=== PATIENT | female | born 1990 | race Caucasian/White ===

== ENCOUNTER 2018-05-19 08:26 | Emergency (ER) | payer OTHER ==
[2018-05-19 08:45] VITALS: BMI 30.2
--- NOTE | 2018-05-19 09:18 | PDOC ---
Attending Attestation - HPI HPI: 05/19/18 10:41 The patient is a 27 year old female, with no significant past medical history, who presents to the emergency department with pelvic pain that started 3 days ago. Patient states her pain began 1 month ago and initially was intermittent. She presents today because her pain is now constant, non crampy in sensation, localized to the left lower quadrant. Patient reports visiting her [facility] office around 2 weeks ago and Ultrasound was done secondary to previous vaginal cyst. Ultrasound was normal. Patient continued to experience her pain after the visit so she proceeded to follow-up at her PCP office. Urine was drawn when revealed the presence of protein. Patient reports she has been taking antibiotics for a couple of days with no relief. Patient denies dysuria, frequency, urgency and hematuria. Patient denies fever, chills, nausea, vomit, diarrhea and constipation. Denies vaginal bleeding and vaginal discharge. Allergies: NKDA Past surgical history :None reported Social history: None reported PCP: Dr. Samra Gardner - Physicial Exam PE: 05/19/18 10:41 GENERAL: The patient is in no acute distress. HEAD: Normal with no signs of trauma. EYES: PERRLA, EOMI, sclera anicteric, conjunctiva clear. ENT: Ears normal, nares patent, oropharynx clear without exudates. Moist mucous membranes. NECK: Normal range of motion, supple without lymphadenopathy, JVD, or masses. LUNGS: Breath sounds equal, clear to auscultation bilaterally. No wheezes, and no crackles. HEART:Regular rate and rhythm, normal S1 and S2 without murmur, rub or gallop. ABDOMEN: +suprapubic tenderness, +LLQ. Soft, nontender, normoactive bowel sounds. No guarding, no rebound. No masses palpable. GENITOURINARY:+scant discharge,+tenderness. No vaginal discharge, no cervical motion, no adnexal fullness EXTREMITIES: Normal range of motion, no edema. No clubbing or cyanosis. No erythema, or tenderness. NEUROLOGICAL: Cranial nerves II through XII grossly intact. Normal speech. No focal neurological deficits. MUSCULOSKELETAL: Back non-tender to palpation, no CVA tenderness SKIN: Warm, Dry, normal turgor, no rashes or lesions noted. <Tasha Quezada - Last Filed: 05/19/18 12:15> - Resident Resident Name: Bekkerman,Von - ED Attending Attestation I have performed the following: I have examined & evaluated the patient, The case was reviewed & discussed with the resident, I agree w/resident's findings & plan, Exceptions are as noted - Medical Decision Making 05/20/18 08:14 Ms Riddle is a 27 yo F who presents to the ER with a complaint of llq pain Pain has been intermittent for the past month Worsening over the past 3 days Was seen by verification engineer 2 weeks ago, work up including US reportedly negatively She was seen by her PMD last week who dx UTI base on proteinuria, started her on cipro and flagyl Pt pain worsened no vaginal bleeding On examination, LLQ tenderness, no guarding or rebound Pelvic examination with no blood, no abn vaginal discharge, no CMT, no adnexal masses, nml external genitalia RRR CTA Labs wnml US with complex Left Hemorrhagic cyst CT same + moderate free fluid Pt given Tylenol IV with improved pain no peritoneal signs on examination prior to discharge Pt given copies of CT and US HGB stable as compared to prior Pt understands concerning signs and symptoms Will return for increased pain, uncontrollable pain, weakness, dizziness Pt was asked to follow up with verification engineer and show them her CT and US before the end of this week. Pt agrees with discharge plan Clinical Impression: Complex Hemorrhagic Cyst, initial presentation Likely Ruptured Cyst, initial presentation <Tania Rodriguez - Last Filed: 05/20/18 08:20> Discharge Disposition <Tasha Quezada - Last Filed: 05/19/18 12:15> - Discharge Dispostion Decision to Admit order: No <Tania Rodriguez - Last Filed: 05/20/18 08:20> - Diagnosis Ovarian cyst Qualifiers: Laterality: left Qualified Code(s): N83.202 - Unspecified ovarian cyst, left side - Discharge Dispostion Disposition: HOME Condition at time of disposition: Good - Prescriptions Prescriptions: Acetaminophen W/ Codeine #3 [Tylenol # 3 -] 1 tab PO BID #6 tablet MDD 2 - Referrals Referrals: Samra Gardner MD [Primary Care Provider] - - Patient Instructions Printed Discharge Instructions: DI for Ovarian Cyst Additional Instructions: Please return if you have any new, worsening or concerning symptoms. Please follow up with your primary care physician in the next week. - Post Discharge Activity Attestations - Attestations 05/19/18 10:55 Documentation prepared by Tasha Quezada, acting as medical van driver for Tania Rodriguez MD <Tasha Quezada - Last Filed: 05/19/18 12:15>
[2018-05-19] MEDS ORDERED: ACETAMINOPHEN 1000 MG/100 ML VIAL (NON FORMULARY) IVPB ONE (09:35)
--- NOTE | 2018-05-19 09:35 | PDOC ---
History of Present Illness - General Chief Complaint: Pain, Acute Stated Complaint: PELVIC PAIN Time Seen by Provider: 05/19/18 09:09 - History of Present Illness Initial Comments: 05/19/18 09:34 27 year old female with a hx of L hemorrhagic ovarian cyst and irregular menses presents for 3 day hx of LLQ abdominal pain. She reports that the pain started on Friday and progressively became worse, describing it as severe since last night. She took Ibuprofen, which did not alleviate her pain. Says that she has had on and off pain for 1 month, had a normal transvaginal US two weeks ago. She saw her PCP 2 days ago, who she states diagnosed her with a UTI based on "protein in her urine" and given cipro/flagyl. Denies chest pain, SOB, nausea, vomiting, diarrhea, fevers, chills. Allergies: none Surgeries: Gastric bypass (5 years ago) Smoking: none Alcohol: none Drugs: none Past History - Past Medical History Allergies/Adverse Reactions: Allergies Allergy/AdvReac Type Severity Reaction Status Date / Time No Known Allergies Allergy Verified 05/19/18 08:35 Home Medications: Ambulatory Orders NK [No Known Home Medication] 05/19/18 COPD: No DVT: No Dementia: No - Surgical History Abdominal Surgery: Yes (GASTRIC BYPASS 3 YRS AGO) - Immunization History Immunization Up to Date: Yes - Suicide/Smoking/Psychosocial Hx Smoking History: Never smoked Have you smoked in the past 12 months: No Information on smoking cessation initiated: No Hx Alcohol Use: No Drug/Substance Use Hx: No Substance Use Type: None Review of Systems - Review of Systems Able to Perform ROS?: Yes Is the patient limited Welsh proficient: Yes Constitutional: No: Chills, Fever, Weakness Respiratory: No: Cough, Shortness of Breath, Wheezing Cardiac (ROS): No: Chest Pain, Chest Tightness ABD/GI: Yes: Other (LLQ pain). No: Diarrhea, Nausea, Vomiting : No: Dysuria *Physical Exam - Vital Signs Last Vital Signs Temp Pulse Resp BP Pulse Ox 97.9 F 90 16 127/78 98 05/19/18 08:36 05/19/18 08:36 05/19/18 08:36 05/19/18 08:36 05/19/18 08:36 - Physical Exam Comments: 05/19/18 09:53 GENERAL: A&Ox3, no acute distress EYES: PERRLA, EOMI ENT: Moist mucus membranes NECK: No JVD LUNGS: CTA, no wheezes HEART: RRR, no murmurs ABDOMEN: Soft, nontender, BS present, surgical scars noted from prior bypass MUSCULOSKELETAL: No CVA Tenderness EXTREMITIES: 2+ pulses, no edema. NEUROLOGICAL: Cranial nerves II-XII intact. ED Treatment Course - LABORATORY CBC & Chemistry Diagram: 05/19/18 09:53 05/19/18 09:53 - RADIOLOGY Radiology Studies Ordered: Category Date Time Status TRANSVAGINAL ULTRASOUND US [US] Stat Ultrasound 05/19/18 09:02 Ordered Medical Decision Making - Medical Decision Making 05/19/18 09:54 27 year old female hx L hemorrhagic cyst presents with 3 days of severe lower abdominal pain -cbc, cmp, ua, upreg, transvaginal us -tylenol IV 1000mg for pain -signed out to Dr. Fischer 05/19/18 12:09 *DC/Admit/Observation/Transfer Diagnosis at time of Disposition: Ovarian cyst - Referrals Referrals: Samra Gardner MD [Primary Care Provider] - - Patient Instructions - Post Discharge Activity
[2018-05-19] MEDS ORDERED: ACETAMINOPHEN INJECTION 100 ML IVPB ONE (09:42)
[2018-05-19 10:01] LABS: BASO % 0.6 % (0-2.0); EOS % 0.4 % (0-4.5); HEMATOCRIT 42.3 % (32.4-45.2); HEMOGLOBIN 14.5 GM/dL (10.7-15.3); LYMPH % 27.8 % (8-40); MCH 28.8 pg (25.7-33.7); MCHC 34.3 g/dl (32.0-36.0); MEAN PLT VOLUME 10.4 fl (7.5-11.1); MONO % 7.8 % (3.8-10.2); NEUT % 63.4 % (42.8-82.8); PLATELET COUNT 197 K/MM3 (134-434); RBC 5.03 M/mm3 (3.60-5.2); RDW 13.2 % (11.6-15.6); WHITE BLOOD COUNT 9.5 K/mm3 (4.0-10.0)
[2018-05-19 10:12] LABS: HCG,QUALITATIVE URINE NEGATIVE
[2018-05-19 10:16] LABS: URINE APPEARANCE CLEAR; URINE BILIRUBIN NEGATIVE (<2.0 mg/dL); URINE COLOR YELLOW; URINE GLUCOSE (UA) NEGATIVE (NEGATIVE); URINE KETONE NEGATIVE (NEGATIVE); URINE LEUK ESTERASE TRACE (NEGATIVE); URINE NITRITE NEGATIVE (NEGATIVE); URINE PROTEIN NEGATIVE (NEGATIVE); URINE UROBILINOGEN NEGATIVE mg/dL (0.2-1.0)
[2018-05-19 10:21] LABS: EPI CELLS RARE /HPF (FEW); URINE HYALINE CAST 1 /lpf; URINE MUCUS RARE
[2018-05-19 10:28] LABS: ALBUMIN 3.8 g/dl (3.4-5.0); ALK PHOS 71 U/L (45-117); ANION GAP 4 (8-16); BILIRUBIN,TOTAL 0.5 mg/dL (0.2-1.0); BLOOD UREA NITROGEN 16 mg/dL (7-18); CALCIUM 8.7 mg/dL (8.5-10.1); CHLORIDE 108 mmol/L (98-107); CO2 28 mmol/L (21-32); CREATININE 0.7 mg/dL (0.55-1.02); GLUCOSE,RANDOM 66 mg/dL (74-106); POTASSIUM 4.5 mmol/L (3.5-5.1); SGOT/AST 21 U/L (15-37); SGPT/ALT 29 U/L (12-78); SODIUM 140 mmol/L (136-145); TOT PROT 7.4 g/dl (6.4-8.2)
--- NOTE | 2018-05-19 12:41 | PDOC ---
*Physical Exam - Vital Signs Last Vital Signs Temp Pulse Resp BP Pulse Ox 97.9 F 90 16 127/78 98 05/19/18 08:36 05/19/18 08:36 05/19/18 08:36 05/19/18 08:36 05/19/18 08:36 - Physical Exam Comments: 05/19/18 12:24 GENERAL: Awake, alert, and fully oriented, in no acute distress HEAD: No signs of trauma, normocephalic, atraumatic EYES: PERRLA, EOMI, sclera anicteric, conjunctiva clear ABDOMEN: Soft, nontender, normoactive bowel sounds. No guarding, no rebound. No masses EXTREMITIES: Normal inspection, Normal range of motion, no edema. No clubbing or cyanosis. NEUROLOGICAL: Cranial nerves II through XII grossly intact. Normal speech, normal gait, no focal sensorimotor deficits SKIN: Warm, Dry, normal turgor, no rashes or lesions noted. ED Treatment Course - LABORATORY CBC & Chemistry Diagram: 05/19/18 09:53 05/19/18 09:53 - ADDITIONAL ORDERS Additional order review: Laboratory Results 05/19/18 05/19/18 09:53 09:53 Sodium 140 Potassium 4.5 Chloride 108 H Carbon Dioxide 28 Anion Gap 4 L BUN 16 Creatinine 0.7 Creat Clearance w eGFR > 60 Random Glucose 66 L Calcium 8.7 Total Bilirubin 0.5 AST 21 ALT 29 Alkaline Phosphatase 71 Total Protein 7.4 Albumin 3.8 Urine Color Yellow Urine Appearance Clear Urine pH 5.0 Ur Specific [place] 1.025 Urine Protein Negative Urine Glucose (UA) Negative Urine Ketones Negative Urine Blood Negative Urine Nitrite Negative Urine Bilirubin Negative Urine Urobilinogen Negative Ur Leukocyte Esterase Trace Urine WBC (Auto) <1 Urine RBC (Auto) None Ur Epithelial Cells Rare Hyaline Casts 1 Urine Mucus Rare Urine HCG, Qual Negative 05/19/18 09:53 RBC 5.03 MCV 84.0 MCHC 34.3 RDW 13.2 MPV 10.4 Neutrophils % 63.4 D Lymphocytes % 27.8 D Monocytes % 7.8 D Eosinophils % 0.4 D Basophils % 0.6 - Medications Given in the ED: ED Medications Discontinued Medications Generic Name Dose Route Start Last Admin Trade Name Freq PRN Reason Stop Dose Admin Acetaminophen 1,000 mg 05/19/18 09:35 06/26/18 09:57 Ofirmev Injection - IVPB 05/19/18 09:36 1,000 mg ONCE ONE Administration Medical Decision Making - Medical Decision Making 05/19/18 12:[address] Collins. Patient is 27F with history of hemorrhagic cyst here today with abdominal pain. Labs normal, ua negative, u preg negative. CT shows <5cm cyst. CT negative for other acute pathologies. Patient feels improved. Will discharge. *DC/Admit/Observation/Transfer Diagnosis at time of Disposition: Ovarian cyst - Discharge Dispostion Disposition: HOME Condition at time of disposition: Good - Referrals Referrals: Samra Gardner MD [Primary Care Provider] - - Patient Instructions Printed Discharge Instructions: DI for Ovarian Cyst Additional Instructions: Please return if you have any new, worsening or concerning symptoms. Please follow up with your primary care physician in the next week. - Post Discharge Activity
[2018-05-19 13:30] VITALS: BP 113/71; PULSE 70; TEMP 98.2
== END 2018-05-19 13:19 | disposition home or self-care (01) ==
LOC: JER 08:26
PROC: 3E033NZ Introduction of Analgesics, Hypnotics, Sedatives into Peripheral Vein, Percutaneous Approach (ICD-10-PCS; principal; 2018-05-19)
DX: N83.202 Unspecified ovarian cyst, left side (principal)
CPT/HCPCS: 36415; 74177-TC; 76830-TC; 80053; 81003; 81015; 84703; 85025; 96374; 99283-25; J0131